=== PATIENT | male | born 1945 | race Caucasian/White ===

== ENCOUNTER 2021-02-21 01:43 | Emergency (ER) | payer MEDICARE, OTHER ==
[2021-02-21 02:39] LABS: RED BLOOD COUNT 4.85 M/UL (4.20-5.50); WHITE BLOOD COUNT 12.2 K/UL (4.5-11.0)
[2021-02-21 02:57] LABS: BUN/CREATININE RATIO 13 (0-10)
[2021-02-21] MEDS ORDERED: ZOFRAN4 MG PO (07:08)
[2021-02-21] MEDS ORDERED: BENTYL 20MG TAB20 MG PO (07:08)
== END 2021-02-21 07:19 | disposition home or self-care (01) ==
LOC: ER1 01:43
PROVIDERS: Physician Assistant Medical
DX: R10.31 Right lower quadrant pain (principal); I10 Essential (primary) hypertension; J44.9 Chronic obstructive pulmonary disease, unspecified; F17.210 Nicotine dependence, cigarettes, uncomplicated; Z90.49 Acquired absence of other specified parts of digestive tract
CPT/HCPCS: 80053; 83605; 83690; 85025; 85610; 96374; 96375; 99284; J2270; J2405; Q9967

== ENCOUNTER 2021-07-03 11:08 | Emergency (ER) | payer MEDICARE, OTHER ==
[~2021-07-03 11:08] MED LIST: BENTYL 20MG TAB20 MG PO; ZOFRAN4 MG PO
[2021-07-03 11:49] LABS: HEMOGLOBIN 14.4 gm/dl (14.0-17.5); RED BLOOD COUNT 4.74 M/UL (4.20-5.50); WHITE BLOOD COUNT 7.3 K/UL (4.5-11.0)
[2021-07-03 12:31] LABS: BUN/CREATININE RATIO 21 (0-10)
[2021-07-03] MEDS ORDERED: ZOFRAN ODT 4 MG4 MG SL (17:24)
[2021-07-03] MEDS ORDERED: ROXICODONE TAB 55 MG PO (17:24)
== END 2021-07-03 18:08 | disposition left against medical advice (07) ==
LOC: ER1 11:08
PROVIDERS: Physician Assistant
DX: K86.9 Disease of pancreas, unspecified (principal); K83.1 Obstruction of bile duct; I10 Essential (primary) hypertension; F17.200 Nicotine dependence, unspecified, uncomplicated
CPT/HCPCS: 74150; 80053; 81001; 82150; 83690; 85025; 87086; 93005; 96374; 99284; J1335; J7030; Q9967